=== PATIENT | male | born 1985 | race Caucasian/White ===

== ENCOUNTER 2016-09-04 10:00 | Emergency (ER) | payer OTHER ==
--- NOTE | 2016-09-04 12:19 | ED CLINICAL REPORT ---
Clinical Report - Physicians/Mid Levels [facility] [address] [place] [address] 09/04/2016 10:00 Patient: CARLOS AYALA Time Seen: 10:08; initial patient contact. Arrived- By ambulance. Historian- patient. HISTORY OF PRESENT ILLNESS Chief Complaint: DRUG OVERDOSE and INTOXICATION. This occurred just prior to arrival. Toxic symptoms present but improving in ED with drowsiness. Single drug taken intravenously- Heroin. No self-injury. Rescue was likely for this event. He did not seek help. No situational problems or alcohol recently. History of recent heroin use. The symptoms are described as moderate. Has not been depressed or upset. No anger, suicidal thoughts, hallucinations or delusions. Not confused or paranoid. Similar symptoms previously: Many times. Recent medical care: Not recently seen/assessed. REVIEW OF SYSTEMS No headache, chest pain, abdominal pain, vomiting or diarrhea. No fever. All systems otherwise negative, except as recorded above. PAST HISTORY ( Hepatitis C carrier. Substance Abuse). Additional Surgeries: no known surgeries. Medications: None. Allergies: No Known Drug Allergy. SOCIAL HISTORY Current every day smoker. History of heavy IV drug use: heroin, methamphetamines. Recently used drugs just prior to arrival. Under influence in ED. No alcohol use. ADDITIONAL NOTES The nursing notes have been reviewed. PHYSICAL EXAM Vital Signs: 09/04/2016 09:51 BP: 123/66. HR: 82. RR: 12. O2 saturation: 99%. Temp: 98.3 F. Have been reviewed as normal. Appearance: Oriented X3. No acute distress. Lethargic. ENT: Normal ENT inspection. Neck: Normal inspection. CVS: Normal heart rate and rhythm. Heart sounds normal. Respiratory: No respiratory distress. Breath sounds normal. Abdomen: Soft and nontender. No organomegaly. The bowel sounds are not abnormal. Skin: Skin warm and dry. Normal skin color. Extremities: No lower extremity edema. Neuro: [place] Coma Scale: 14- eyes open to voice (3); best verbal response- oriented x 3 (5); best motor response- obeys commands (6). Oriented X 3. Mood/affect normal. Speech normal. PROGRESS AND PROCEDURES Course of Care: Pt fully alert and Ox3. The patient's symptoms are now gone. Physical exam findings are improved. Disposition: Discharged home in good and improved condition. Condition: good. CLINICAL IMPRESSION Accidental single drug overdose with heroin. Chronic substance abuse- heroin, methamphetamines with intoxication. INSTRUCTIONS (Seek help for your drug problem starting with your primary care doctor). Follow-up: Follow up with your doctor in about two days. Call for an appointment. Screening today revealed the patient's blood pressure to be in the normal range. (Electronically signed by Tobi Rosales Dr. 09/04/2016 12:22)
--- NOTE | 2016-09-04 12:19 | ED NURSING NOTES ---
Clinical Report - Nurses [facility] [place] [place] [address] 09/04/2016 10:00 Patient: CARLOS AYALA TRIAGE Triage time 0951. Chief Complaint: DRUG OVERDOSE. 09:51 09/04/16. SEPSIS SCREEN: Sepsis Screen. Negative (no infection suspected/documented). Heart rate not greater than 90. Respiratory rate not greater than 20. [place] COMA SCORE: [place] Coma Scale: 14- eyes open to voice (3); best verbal response- oriented x 4 (5); best motor response- obeys commands (6). --10:35 Noreen Gonzales R.N. 09:51 09/04/16. BP: 123/66. HR: 82. RR: 12. O2 saturation: 99%. Temp: 98.3 F. --10:35 Noreen Gonzales R.N. Weight: 77.1 kg stated. Height/Length: 69 inches Per Patient. BMI: 25.1. --10:21 Noreen Gonzales R.N. Medications None. --10:33 Noreen Gonzales R.N. Allergies No Known Drug Allergy. --10:33 Noreen Gonzales R.N. History Arrived by EMS. Primary physician (no pcp). ( pt dropped off at [facility] unconscious, heroin OD, 0.4 narcan given by clinic RN, transported via EMS. nodding off in triage. resistant to care, security and PD outside of room.). This occurred just prior to arrival. Treatment AQUA AMMONIA OPERATOR: (0.4narcan at [facility]). EMS treatment AQUA AMMONIA OPERATOR verbally communicated. BP: 138/82. RR: 18. O2 saturation: 97 % room air. Upon arrival patient lethargic. Pre-hospital care report unavailable. SOCIAL HX: Heavy tobacco smoker (cigarette)- 1 pack per day. History of IV drug use: heroin, methamphetamines. Recently used drugs just prior to arrival. No alcohol use. FALL RISK ASSESSMENT: Fall risk assessment completed. No fall risk identified. NUTRITIONAL RISK ASSESSMENT: The nutritional risk assessment revealed no deficiencies. FUNCTIONAL ASSESSMENT: Functional assessment: no impairments noted. LEARNING NEEDS ASSESSMENT: The learning needs assessment revealed no barriers. --10:35 Noreen Gonzales R.N. PROBLEMS: Hepatitis C carrier. Substance Abuse. --10:33 Noreen Gonzales R.N. ADDITIONAL SURGERIES: no known surgeries. Interventions ID band on patient. To treatment room. --10:35 Noreen Gonzales R.N. PHYSICAL ASSESSMENT 09:55 09/04/16. To room via stretcher. GENERAL / NEURO / PSYCH: Altered mental status: lethargic. Patient slow to respond. No response to commands. No response to commands. RESPIRATORY: ( bradypnea). CVS: Capillary refill less than 2 seconds. SKIN: Skin color is within normal limits. ( multiple scabs to face). --10:37 Noreen Gonzales R.N. NURSING PROGRESS NOTES 10:00. The plan of care for this patient has been created. security sergeant, pulse oximeter and NIBP monitor placed on patient. Patient gowned. ( belongings removed and placed in locker. Direct sight of nurses station. Refuses to answer further assessment questions. Yelling at staff, "I've got places to go and stuff to do today."). Call light placed in reach. Side rails up x 2. Bed placed in lowest position. Brakes of bed on. --10:38 Noreen Gonzales R.N. 10:02 09/04/2016 Site #1 started via IV in the left upper arm with an 18g angiocath, with aseptic technique and good blood return; one attempt. Blood drawn: rainbow set. Labeled in the presence of the patient and sent to the lab. Saline lock flushed with 10 mL saline. --10:39 Noreen Gonzales R.N. 10:04 09/04/2016 Narcan (Naloxone HCl) IVP 0.4 mg given over 1 minute(s) via site #1. Allergies verified and confirmed 5 rights. IV patency established. IV site checked: no pain, redness, or swelling. IV flushed thoroughly pre- and post-medication administration. IVP given by RN. --10:41 Christian, K Louann, R.N. The patient is sleeping. --10:42 Noreen Gonzales R.N. 10:42 09/04/16. BP: 132/65. HR: 71. RR: 11. O2 saturation: 98%. Pain level now 0/10. --10:42 Noreen Gonzales R.N. 11:21 09/04/16. The patient is sleeping. --11:21 Noreen Gonzales R.N. 11:21 09/04/16. BP: 119/60. HR: 76. RR: 11. O2 saturation: 97%. Pain level now 0/10. --11:21 Noreen Gonzales R.N. Cardiac rhythm: normal sinus rhythm. ( billing administrator at bedside. pt is lethargic). --11:55 Noreen Gonzales R.N. 11:53 09/04/16. BP: 119/67. HR: 96. RR: 8. O2 saturation: 96%. Pain level now 0/10. --11:55 Noreen Gonzales R.N. DISPOSITION / DISCHARGE 13:00 09/04/2016 Site #1 removed upon discharge. Catheter intact. Pressure dressing applied. --13:42 Elie Vanessa R.N. 13:43 09/04/16. The goals identified in the patient's plan of care were met. No learning barriers present. Discharge instructions provided and reviewed with the patient. Reviewed warnings. Reviewed medication(s). Treatments reviewed. Patient verbalized understanding. Written instructions provided in Croatian. The patient was discharged by the physician. He was discharged home and accompanied by billing administrator. He left the Emergency Department ambulatory. Hardware Installer driving. FALL RISK ASSESSMENT: Fall risk assessment completed. No fall risk identified. --13:43 Elie Vanessa R.N. 13:42 09/04/16. BP: 119/72. HR: 80. RR: 14. O2 saturation: 100% on room air. Temp: 98.2 F (oral). Pain level now: 0/10. --13:43 Elie Vanessa R.N. ( Pt was upset, could not locate drivers license, his drivers license was misplaced, searched for 30 min, searched with 3 RN's, looked in room, garbage, dirty linen, registration. Still could not locate it. Call [phone] if locate drivers license. Pt aware we will call patient if we locate it.). --13:46 Elie Vanessa R.N. Departure time: 1346. --13:46 Elie Vanessa R.N. Locked/Released at 09/04/2016 13:49 by Elie Vansesa R.N.
--- NOTE | 2016-09-04 12:19 | ED CLINICAL REPORT ---
Clinical Report - Physicians/Mid Levels [facility] [address] [place] [address] 09/04/2016 10:00 Patient: CARLOS AYALA Time Seen: 10:08; initial patient contact. Arrived- By ambulance. Historian- patient. HISTORY OF PRESENT ILLNESS Chief Complaint: DRUG OVERDOSE and INTOXICATION. This occurred just prior to arrival. Toxic symptoms present but improving in ED with drowsiness. Single drug taken intravenously- Heroin. No self-injury. Rescue was likely for this event. He did not seek help. No situational problems or alcohol recently. History of recent heroin use. The symptoms are described as moderate. Has not been depressed or upset. No anger, suicidal thoughts, hallucinations or delusions. Not confused or paranoid. Similar symptoms previously: Many times. Recent medical care: Not recently seen/assessed. REVIEW OF SYSTEMS No headache, chest pain, abdominal pain, vomiting or diarrhea. No fever. All systems otherwise negative, except as recorded above. PAST HISTORY ( Hepatitis C carrier. Substance Abuse). Additional Surgeries: no known surgeries. Medications: None. Allergies: No Known Drug Allergy. SOCIAL HISTORY Current every day smoker. History of heavy IV drug use: heroin, methamphetamines. Recently used drugs just prior to arrival. Under influence in ED. No alcohol use. ADDITIONAL NOTES The nursing notes have been reviewed. PHYSICAL EXAM Vital Signs: 09/04/2016 09:51 BP: 123/66. HR: 82. RR: 12. O2 saturation: 99%. Temp: 98.3 F. Have been reviewed as normal. Appearance: Oriented X3. No acute distress. Lethargic. ENT: Normal ENT inspection. Neck: Normal inspection. CVS: Normal heart rate and rhythm. Heart sounds normal. Respiratory: No respiratory distress. Breath sounds normal. Abdomen: Soft and nontender. No organomegaly. The bowel sounds are not abnormal. Skin: Skin warm and dry. Normal skin color. Extremities: No lower extremity edema. Neuro: [place] Coma Scale: 14- eyes open to voice (3); best verbal response- oriented x 3 (5); best motor response- obeys commands (6). Oriented X 3. Mood/affect normal. Speech normal. PROGRESS AND PROCEDURES Course of Care: Pt fully alert and Ox3. The patient's symptoms are now gone. Physical exam findings are improved. Disposition: Discharged home in good and improved condition. Condition: good. CLINICAL IMPRESSION Accidental single drug overdose with heroin. Chronic substance abuse- heroin, methamphetamines with intoxication. INSTRUCTIONS (Seek help for your drug problem starting with your primary care doctor). Follow-up: Follow up with your doctor in about two days. Call for an appointment. Screening today revealed the patient's blood pressure to be in the normal range. (Electronically signed by Tobi Rosales Dr. 09/04/2016 12:22)
--- NOTE | 2016-09-04 12:19 | ED ORDER SUMMARY ---
..... Patient: CARLOS AYALA OrderSheet [facility] VisitID: [id number] [place] [address] 31y, M Registration Date/Time: 09/04/2016 ORDER SHEET Weight: 77.1 kg (stated) Allergies: No Known Drug Allergy GENERAL ORDERS: MEDICATION ORDERS: IV FLUIDS: Narcan IV 0.4 mg (HIGH ALERT MEDICATION, NOW) (10:40 09/04/2016 Lisa Cheung verbal order read back to Tima Arias) (10:41 Lisa Cheung) ORDER SHEET NOTES: [Electronically signed by Tobi Rosales Dr. (12:22 09/04/2016)] [Electronically signed by Elie Vanessa R.N. (13:49 09/04/2016)] [Electronically locked/signed by Elie Vanessa R.N. (13:49 09/04/2016)]
--- NOTE | 2016-09-04 12:19 | ED NURSING NOTES ---
Clinical Report - Nurses [facility] [place] [address] 09/04/2016 10:00 Patient: CARLOS AYALA TRIAGE Triage time 0951. Chief Complaint: DRUG OVERDOSE. 09:51 09/04/16. SEPSIS SCREEN: Sepsis Screen. Negative (no infection suspected/documented). Heart rate not greater than 90. Respiratory rate not greater than 20. TOMEKA COMA SCORE: [place] Coma Scale: 14- eyes open to voice (3); best verbal response- oriented x 4 (5); best motor response- obeys commands (6). --10:35 Noreen Gonzales R.N. 09:51 09/04/16. BP: 123/66. HR: 82. RR: 12. O2 saturation: 99%. Temp: 98.3 F. --10:35 Noreen Gonzales R.N. Weight: 77.1 kg stated. Height/Length: 69 inches Per Patient. BMI: 25.1. --10:21 Noreen Gonzales R.N. Medications None. --10:33 Noreen Gonzales R.N. Allergies No Known Drug Allergy. --10:33 Noreen Gonzales R.N. History Arrived by EMS. Primary physician (no pcp). ( pt dropped off at [facility] unconscious, heroin OD, 0.4 narcan given by clinic RN, transported via EMS. nodding off in triage. resistant to care, security and PD outside of room.). This occurred just prior to arrival. Treatment KNUCKLER: (0.4narcan at [facility]). EMS treatment KNUCKLER verbally communicated. BP: 138/82. RR: 18. O2 saturation: 97 % room air. Upon arrival patient lethargic. Pre-hospital care report unavailable. SOCIAL HX: Heavy tobacco smoker (cigarette)- 1 pack per day. History of IV drug use: heroin, methamphetamines. Recently used drugs just prior to arrival. No alcohol use. FALL RISK ASSESSMENT: Fall risk assessment completed. No fall risk identified. NUTRITIONAL RISK ASSESSMENT: The nutritional risk assessment revealed no deficiencies. FUNCTIONAL ASSESSMENT: Functional assessment: no impairments noted. LEARNING NEEDS ASSESSMENT: The learning needs assessment revealed no barriers. --10:35 Noreen Gonzales R.N. PROBLEMS: Hepatitis C carrier. Substance Abuse. --10:33 Noreen Gonzales R.N. ADDITIONAL SURGERIES: no known surgeries. Interventions ID band on patient. To treatment room. --10:35 Noreen Gonzales R.N. PHYSICAL ASSESSMENT 09:55 09/04/16. To room via stretcher. GENERAL / NEURO / PSYCH: Altered mental status: lethargic. Patient slow to respond. No response to commands. No response to commands. RESPIRATORY: ( bradypnea). CVS: Capillary refill less than 2 seconds. SKIN: Skin color is within normal limits. ( multiple scabs to face). --10:37 Noreen Gonzales R.N. NURSING PROGRESS NOTES 10:00. The plan of care for this patient has been created. school bus monitor, pulse oximeter and NIBP monitor placed on patient. Patient gowned. ( belongings removed and placed in locker. Direct sight of nurses station. Refuses to answer further assessment questions. Yelling at staff, "I've got places to go and stuff to do today."). Call light placed in reach. Side rails up x 2. Bed placed in lowest position. Brakes of bed on. --10:38 Noreen Gonzales R.N. 10:02 09/04/2016 Site #1 started via IV in the left upper arm with an 18g angiocath, with aseptic technique and good blood return; one attempt. Blood drawn: rainbow set. Labeled in the presence of the patient and sent to the lab. Saline lock flushed with 10 mL saline. --10:39 Noreen Gonzales R.N. 10:04 09/04/2016 Narcan (Naloxone HCl) IVP 0.4 mg given over 1 minute(s) via site #1. Allergies verified and confirmed 5 rights. IV patency established. IV site checked: no pain, redness, or swelling. IV flushed thoroughly pre- and post-medication administration. IVP given by RN. --10:41 Christian, K Louann, R.N. The patient is sleeping. --10:42 Noreen Gonzales R.N. 10:42 09/04/16. BP: 132/65. HR: 71. RR: 11. O2 saturation: 98%. Pain level now 0/10. --10:42 Noreen Gonzales R.N. 11:21 09/04/16. The patient is sleeping. --11:21 Noreen Gonzales R.N. 11:21 09/04/16. BP: 119/60. HR: 76. RR: 11. O2 saturation: 97%. Pain level now 0/10. --11:21 Noreen Gonzales R.N. Cardiac rhythm: normal sinus rhythm. ( ship's captain at bedside. pt is lethargic). --11:55 Noreen Gonzales R.N. 11:53 09/04/16. BP: 119/67. HR: 96. RR: 8. O2 saturation: 96%. Pain level now 0/10. --11:55 Noreen Gonzales R.N. DISPOSITION / DISCHARGE 13:00 09/04/2016 Site #1 removed upon discharge. Catheter intact. Pressure dressing applied. --13:42 Elie Vanessa R.N. 13:43 09/04/16. The goals identified in the patient's plan of care were met. No learning barriers present. Discharge instructions provided and reviewed with the patient. Reviewed warnings. Reviewed medication(s). Treatments reviewed. Patient verbalized understanding. Written instructions provided in Hungarian. The patient was discharged by the physician. He was discharged home and accompanied by ship's captain. He left the Emergency Department ambulatory. Humanities Professor driving. FALL RISK ASSESSMENT: Fall risk assessment completed. No fall risk identified. --13:43 Elie Vanessa R.N. 13:42 09/04/16. BP: 119/72. HR: 80. RR: 14. O2 saturation: 100% on room air. Temp: 98.2 F (oral). Pain level now: 0/10. --13:43 Elie Vanessa R.N. ( Pt was upset, could not locate drivers license, his drivers license was misplaced, searched for 30 min, searched with 3 RN's, looked in room, garbage, dirty linen, registration. Still could not locate it. Call [phone] if locate drivers license. Pt aware we will call patient if we locate it.). --13:46 Elie Vanessa R.N. Departure time: 1346. --13:46 Elie Vanessa R.N. Locked/Released at 09/04/2016 13:49 by Elie Vanessa R.N.
--- NOTE | 2016-09-04 12:19 | ED ORDER SUMMARY ---
..... Patient: CARLOS AYALA OrderSheet [facility] VisitID: [id number] [place] [address] 31y, M Registration Date/Time: 09/04/2016 ORDER SHEET Weight: 77.1 kg (stated) Allergies: No Known Drug Allergy GENERAL ORDERS: MEDICATION ORDERS: IV FLUIDS: Narcan IV 0.4 mg (HIGH ALERT MEDICATION, NOW) (10:40 09/04/2016 Lisa Cheung verbal order read back to Tima Arias) (10:41 Lisa Cheung) ORDER SHEET NOTES: [Electronically signed by Tobi Rosales Dr. (12:22 09/04/2016)] [Electronically signed by Elie Vanessa R.N. (13:49 09/04/2016)] [Electronically locked/signed by Elie Vanessa R.N. (13:49 09/04/2016)]
--- NOTE | 2016-09-04 13:49 | ED MAR SUMMARY ---
..... Medication Administration Record [facility] [address] [place] [address] Patient: CARLOS AYALA Visit ID: [id number] 31y, M Weight: 77.1 kg Height/Length: 69 in BMI: 25.1 ALLERGIES: No Known Drug Allergy Given 10:04 09/04/2016 Noreen Gonzales R.N. Medication Administered: NARCAN [IVP] (NALOXONE HCL), Dose: 0.4 mg IVP over 1 minute(s), Site: #1 left upper arm. Medication Ordered: Narcan IV 0.4 mg (HIGH ALERT MEDICATION, NOW).
--- NOTE | 2016-09-04 13:49 | ED MAR SUMMARY ---
..... Medication Administration Record [facility] [address] [place] [address] Patient: CARLOS AYALA Visit ID: [id number] 31y, M Weight: 77.1 kg Height/Length: 69 in BMI: 25.1 ALLERGIES: No Known Drug Allergy Given 10:04 09/04/2016 Noreen Gonzales R.N. Medication Administered: NARCAN [IVP] (NALOXONE HCL), Dose: 0.4 mg IVP over 1 minute(s), Site: #1 left upper arm. Medication Ordered: Narcan IV 0.4 mg (HIGH ALERT MEDICATION, NOW).
--- NOTE | 2016-09-04 13:49 | ED MED RECONCILIATION SUMMARY ---
Patient: CARLOS AYALA Medication Reconciliation Report [facility] VisitID: [id number] [place] [address] 31y, M Registration Date/Time: 09/04/2016 Weight: 77.1 kg Height/Length: 69 in. BMI: 25.1 ALLERGIES: No Known Drug Allergy The patient's Home Medications are listed below: NONE. The source(s) of the original Home Medication information: Not obtained. The following Medications were given to the patient in the Emergency Department: Narcan [IVP] IVP 0.4 mg, administered: 09/04/2016 10:04:00 AM The following Medications were prescribed to the patient: None.
--- NOTE | 2016-09-04 13:49 | ED DISCHARGE INSTRUCTIONS ---
Patient: CARLOS AYALA General Instructions [facility] VisitID: [id number] [place] [address] 31y, M Registration Date/Time: 09/04/2016 Accidental single drug overdose with heroin. Chronic substance abuse- heroin, methamphetamines with intoxication. INSTRUCTIONS (Seek help for your drug problem starting with your primary care doctor). Follow-up: Follow up with your doctor in about two days. Call for an appointment. Screening today revealed the patient's blood pressure to be in the normal range. ADDITIONAL INFORMATION Accidental Ingestion:Non-Toxic [Adult] You have been evaluated and treated for taking too much of a medicine or swallowing a chemical product. There is no sign of toxic effect at this time. It is very unlikely that any new symptoms will appear. As a safeguard, you must be alert for symptoms during the next 24 hours (see below). The exact symptom will depend on what was swallowed. Home Care: If LIQUID CHARCOAL was given to neutralize what was swallowed, it will cause a black color to the stools for 1-2 days. Usually, a laxative (sorbitol) is given with charcoal to speed the removal of any toxins from the intestinal tract. This may cause diarrhea for up to 24 hours. If no laxative was given with charcoal, you may get constipated. If this occurs, you may take an [id number]-ugd-[id number] laxative such as Dulcolax pills or suppository. Prevention: Keep medicines, pesticides, and other household chemicals in their original containers. Clearly miquel all harmful products if a different bottle is used. Follow Up with your doctor if all symptoms do not resolve within 24 hours or if constipation is not relieved by one or two doses of laxatives. Get Prompt Medical Attention if any of the following occur: Excess drowsiness or inability to be awakened Rapid heart beat, shakiness or seizure Fast breathing (over 25 breaths/minute) or slow breathing (less than 8 breaths/minute) Feeling shortness of breath Fever of 100.4F (38C) or higher, or as directed by your healthcare provider Vomiting or diarrhea for more than 24 hours Blood in stools or vomit (black or red color) Chest or abdominal pain Dizziness, weakness or fainting Drug Abuse Use and abuse of such drugs as marijuana, amphetamines (speed, crank), cocaine, heroin or prescription pain medicines (Vicodin, codeine), sedatives and sleeping pills (Valium, Klonopin), PCP, mescaline and LSD may lead to addiction or dependence. Once this occurs, you are at greater risk for any of the following: Craving for the drug and unable to stop using the drug even though you think you want to stop (psychological dependence) Drug withdrawal symptoms if you stop taking the drug (physical dependence) Loss of your job or your family Arrest, conviction and care home sentence for possession of an illegal substance or for driving under the influence of such a substance Accidental injuries to yourself or others while you are under the influence of the drug (in a car or at home). HIV infection (much greater risk if you use IV drugs) Other sexually transmitted diseases (herpes, chlamydia, gonorrhea and others) Severe and fatal infection of the heart valves (if you use IV drugs) Stroke, heart attack, hepatitis B or C, kidney failure from overdose Home Care: Admit you have a drug problem. Ask for help from your family and close friends. Seek professional help. This could be in the form of individual psychotherapy or counseling or an outpatient, inpatient, or residential drug treatment program. Join a self-help group for drug abuse. Avoid friends who abuse drugs themselves or tempt you to continue abusing drugs. Eat a balanced diet and begin a regular exercise program. Follow Up with your doctor or as advised by our staff. Contact one of the resources below for help. National [place] on Alcoholism and Drug Dependence www.ncadd.org 850-855-KYRE Narcotics Anonymous www.na.org 615-360-2708 National Alcohol and Substance Abuse Information Center (for referral to treatment programs) www.addictioncareoptions.[place] 935-911-5970 Get Prompt Medical Attention if any of the following occur: Agitation, anxiety, unable to sleep Unintended weight loss (more than 10 to 15 pounds over 3 months) Seizure Chest pain Fever of 100.4F (38C) or higher, or as directed by your healthcare provider Excess drowsiness or inability to be awakened Shortness of breath Slow breathing under 8 breaths per minute Cough with colored sputum Redness, swelling or tenderness at an injection site You have been given the following additional information: Overdose, Accidental (Adult) Drug Abuse (Electronically signed by Tobi Rosales Dr. 03/28/2017 12:22)
--- NOTE | 2016-09-04 13:49 | ED MED RECONCILIATION SUMMARY ---
Patient: CARLOS AYALA Medication Reconciliation Report [facility] VisitID: [id number] [place] [address] 31y, M Registration Date/Time: 09/04/2016 Weight: 77.1 kg Height/Length: 69 in. BMI: 25.1 ALLERGIES: No Known Drug Allergy The patient's Home Medications are listed below: NONE. The source(s) of the original Home Medication information: Not obtained. The following Medications were given to the patient in the Emergency Department: Narcan [IVP] IVP 0.4 mg, administered: 09/04/2016 10:04:00 AM The following Medications were prescribed to the patient: None.
--- NOTE | 2016-09-04 13:49 | ED DISCHARGE INSTRUCTIONS ---
Patient: CARLOS AYALA General Instructions [facility] VisitID: [id number] [place] [address] 31y, M Registration Date/Time: 09/04/2016 Accidental single drug overdose with heroin. Chronic substance abuse- heroin, methamphetamines with intoxication. INSTRUCTIONS (Seek help for your drug problem starting with your primary care doctor). Follow-up: Follow up with your doctor in about two days. Call for an appointment. Screening today revealed the patient's blood pressure to be in the normal range. ADDITIONAL INFORMATION Accidental Ingestion:Non-Toxic [Adult] You have been evaluated and treated for taking too much of a medicine or swallowing a chemical product. There is no sign of toxic effect at this time. It is very unlikely that any new symptoms will appear. As a safeguard, you must be alert for symptoms during the next 24 hours (see below). The exact symptom will depend on what was swallowed. Home Care: If LIQUID CHARCOAL was given to neutralize what was swallowed, it will cause a black color to the stools for 1-2 days. Usually, a laxative (sorbitol) is given with charcoal to speed the removal of any toxins from the intestinal tract. This may cause diarrhea for up to 24 hours. If no laxative was given with charcoal, you may get constipated. If this occurs, you may take an yluo-ixn-tcxybeg laxative such as Dulcolax pills or suppository. Prevention: Keep medicines, pesticides, and other household chemicals in their original containers. Clearly miquel all harmful products if a different bottle is used. Follow Up with your doctor if all symptoms do not resolve within 24 hours or if constipation is not relieved by one or two doses of laxatives. Get Prompt Medical Attention if any of the following occur: Excess drowsiness or inability to be awakened Rapid heart beat, shakiness or seizure Fast breathing (over 25 breaths/minute) or slow breathing (less than 8 breaths/minute) Feeling shortness of breath Fever of 100.4F (38C) or higher, or as directed by your healthcare provider Vomiting or diarrhea for more than 24 hours Blood in stools or vomit (black or red color) Chest or abdominal pain Dizziness, weakness or fainting Drug Abuse Use and abuse of such drugs as marijuana, amphetamines (speed, crank), cocaine, heroin or prescription pain medicines (Vicodin, codeine), sedatives and sleeping pills (Valium, Klonopin), PCP, mescaline and LSD may lead to addiction or dependence. Once this occurs, you are at greater risk for any of the following: Craving for the drug and unable to stop using the drug even though you think you want to stop (psychological dependence) Drug withdrawal symptoms if you stop taking the drug (physical dependence) Loss of your job or your family Arrest, conviction and long-term sentence for possession of an illegal substance or for driving under the influence of such a substance Accidental injuries to yourself or others while you are under the influence of the drug (in a car or at home). HIV infection (much greater risk if you use IV drugs) Other sexually transmitted diseases (herpes, chlamydia, gonorrhea and others) Severe and fatal infection of the heart valves (if you use IV drugs) Stroke, heart attack, hepatitis B or C, kidney failure from overdose Home Care: Admit you have a drug problem. Ask for help from your family and close friends. Seek professional help. This could be in the form of individual psychotherapy or counseling or an outpatient, inpatient, or residential drug treatment program. Join a self-help group for drug abuse. Avoid friends who abuse drugs themselves or tempt you to continue abusing drugs. Eat a balanced diet and begin a regular exercise program. Follow Up with your doctor or as advised by our staff. Contact one of the resources below for help. National [place] on Alcoholism and Drug Dependence www.ncadd.org 548-620-JYUK Narcotics Anonymous www.na.org 324-266-2959 National Alcohol and Substance Abuse Information Center (for referral to treatment programs) www.addictioncareoptions.[place] 526-982-3006 Get Prompt Medical Attention if any of the following occur: Agitation, anxiety, unable to sleep Unintended weight loss (more than 10 to 15 pounds over 3 months) Seizure Chest pain Fever of 100.4F (38C) or higher, or as directed by your healthcare provider Excess drowsiness or inability to be awakened Shortness of breath Slow breathing under 8 breaths per minute Cough with colored sputum Redness, swelling or tenderness at an injection site You have been given the following additional information: Overdose, Accidental (Adult) Drug Abuse (Electronically signed by Tobi Rosales Dr. 03/28/2017 12:22)
== END 2016-09-04 13:46 | disposition home or self-care (01) ==
LOC: ED SRH 10:00
DX: T40.1X1A Poisoning by heroin, accidental (unintentional), initial encounter (principal); F11.129 Opioid abuse with intoxication, unspecified; F15.129 Other stimulant abuse with intoxication, unspecified; X58.XXXA Exposure to other specified factors, initial encounter; Y93.89 Activity, other specified; Y99.9 Unspecified external cause status; Y92.9 Unspecified place or not applicable